=== PATIENT | female | born 1950 | race Hispanic/Latino ===

== ENCOUNTER → 2018-02-23 | Outpatient (CLI) | payer OTHER, MEDICARE | END | disposition home or self-care (01) | LOC: OIH 14:00 | PROVIDERS: ATTEND Family Medicine | DX: M25.562 Pain in left knee (principal); M79.662 Pain in left lower leg | CPT/HCPCS: 73562; 73590 ==

== ENCOUNTER 2019-12-24 15:53 | Emergency (ER) | payer OTHER, MEDICARE ==
[2019-12-24] MEDS ORDERED: KETOROLAC TROMETHAMINE 30MG/ML ONE (16:53)
== END 2019-12-24 17:44 | disposition home or self-care (01) ==
LOC: EDH 15:53
DX: B02.9 Zoster without complications (principal); E11.9 Type 2 diabetes mellitus without complications; J44.9 Chronic obstructive pulmonary disease, unspecified; I10 Essential (primary) hypertension; M81.0 Age-related osteoporosis without current pathological fracture
CPT/HCPCS: 96372; 99283; J1885

== ENCOUNTER → 2021-03-14 | Outpatient (CLI) | payer OTHER, MEDICARE | END | disposition home or self-care (01) | LOC: SHCH 10:41 | PROVIDERS: ATTEND Internal Medicine Cardiovascular Disease | DX: R01.1 Cardiac murmur, unspecified (principal) | CPT/HCPCS: 93306; 93356 ==

== ENCOUNTER → 2021-03-16 | Outpatient (CLI) | payer OTHER, MEDICARE ==
[~2021-03-16] MED LIST: REGADENOSON 0.4 MG/5 ML PF SYG IVP SCH
== END | disposition home or self-care (01) ==
LOC: SHCH 07:51
PROVIDERS: ATTEND Internal Medicine Cardiovascular Disease
DX: I48.19 Other persistent atrial fibrillation (principal)
CPT/HCPCS: 78452; 93017; 96374; A9500 ×2; J2785

== ENCOUNTER 2021-04-06 07:11 | Day surgery (SDC) | payer OTHER, MEDICARE ==
[2021-04-03 10:27] VITALS: BP 156/66
[2021-04-03 11:09] LABS: APPEARANCE,URINE Clear (CLEAR); BILIRUBIN,URINE Negative (NEGATIVE); COLOR,URINE Yellow (YELLOW); GLUCOSE, URINE (UA) Negative (NEGATIVE); KETONES,URINE Negative (NEGATIVE); LEUKOCYTE ESTERASE ,URINE Negative (NEGATIVE); NITRATE,URINE Negative (NEGATIVE); OCCULT BLOOD,URINE Negative (NEGATIVE); PROTEIN,URINE Negative (NEGATIVE)
[2021-04-03 11:16] LABS: CREATININE 0.7 mg/dL (0.5-1.5); EOSINOPHILS % (AUTO) 2.7 % (0.0-8.0); HEMATOCRIT 35.9 % (36-48); LYMPHOCYTES % (AUTO) 42.9 % (21.0-51.0); MEAN CORPUSCULAR HEMOGLOBIN 21.6 pg (27.0-33.0); MEAN CORPUSCULAR HGB CONC 31.8 g/dL (32.0-36.0); MONOCYTES % (AUTO) 11.7 % (3.0-13.0); NUCLEATED RED BLOOD CELLS 0.5 % (0.0-0.19); PLATELET COUNT (AUTO) 174 K/uL (130-400); POTASSIUM 4.1 mmol/L (3.5-5.1); RED BLOOD CELL COUNT(AUTO) 5.28 MIL/uL (4.00-5.50); RED CELL DISTRIBUTION WIDTH 15.5 % (11.0-15.5)
[2021-04-03 11:34] LABS: INR 1.24 (0.85-1.15); PROTHROMBIN TIME 13.3 SEC (9.6-11.6)
[~2021-04-06] VITALS: Ht 154.9 cm; Wt 76.4 kg
[2021-04-06] VITALS (11 sets, daily range): BP systolic 129–163; BP diastolic 49–75
[~2021-04-06 07:11] MED LIST changes: +ALBUHFA IH; +AMLO-257 PO; +APIX5TAB PO; +ATOR10 PO; +FLUT1AER IH; +FURO20TA4 PO; +GLIP5TAB11 PO; +LEVO50CA4 PO; +LOSA100T58 PO; +METF-444 PO; +METO25TA6 PO; +OMEP40CA21 PO; -REGADENOSON 0.4 MG/5 ML PF SYG IVP SCH
[2021-04-06] MEDS ORDERED: 0.9%NACL 1000ML 1,000 ML IV ONE (07:33)
[2021-04-06] MEDS ORDERED: MEPERIDINE-PF 50 MG/ML SYG ONE (07:53)
[2021-04-06] MEDS ORDERED: MIDAZOLAM HCL 1 MG/ML 2ML VIAL ONE ×2 (07:53→09:07)
[2021-04-06] MEDS ORDERED: IOHEXOL 350 MG/ML 100ML INFUS..BTL IV ONE (07:54)
[2021-04-06] MEDS ORDERED: NITROGLYCERIN 2 MG VIAL IV ONE (07:54)
[2021-04-06] MEDS ORDERED: HEPARIN 10,000 UNIT/10ML (1,000 UNIT/ML) VIAL ONE (07:54)
[2021-04-06] MEDS ORDERED: IOHEXOL-350 50ML VIAL IV ONE (07:54)
[2021-04-06] MEDS ORDERED: LIDOCAINE HCL 400MG/20ML VIAL ONE (07:55)
[2021-04-06] MEDS ORDERED: PROPOFOL 10 MG/ML 20ML VIAL IV ONE (09:06)
[2021-04-06] MEDS ORDERED: MEPERIDINE-PF 25 MG/ML SYG ONE (09:07)
[2021-04-06] MEDS ORDERED: AMIODARONE 150MG VIAL ONE ×3 (09:28→09:56)
[2021-04-06] MEDS ORDERED: SODIUM BICARB 50MEQ 50ML VIAL 50 ML ONE (09:41)
[2021-04-06] MEDS ORDERED: ASPIRIN 325MG EC TAB PO ONE (10:43)
[2021-04-06] MEDS ORDERED: CLOPIDOGREL 300MG TAB ONE (10:44)
[2021-04-06] MEDS ORDERED: 0.9%NACL 1000ML 1,000 ML IV SCH (11:00)
[2021-04-06] MEDS ORDERED: DEXTROSE 50%-WATER 50 ML DISP.SYRIN IV PRN (11:00)
[2021-04-06] MEDS ORDERED: AMIODARONE 200 MG TABLET PO ONE ×2 (11:00→11:22)
[2021-04-06] MEDS ORDERED: INSULIN HUMULIN R 100 UNIT/ML 3ML SQ SCH (11:30)
[2021-04-06] MEDS ORDERED: AMIODARONE 200 MG TABLET PO SCH (11:45)
[2021-04-06] MEDS ORDERED: PHARMACY COMMUNICATION MISC SCH (13:00)
== END 2021-04-06 17:05 | disposition home or self-care (01) ==
LOC: DAH 07:11
PROVIDERS: ATTEND Internal Medicine Cardiovascular Disease
DX: I25.119 Atherosclerotic heart disease of native coronary artery with unspecified angina pectoris (principal); Z20.822 Contact with and (suspected) exposure to COVID-19; I48.0 Paroxysmal atrial fibrillation; I11.0 Hypertensive heart disease with heart failure; I50.42 Chronic combined systolic (congestive) and diastolic (congestive) heart failure; E78.5 Hyperlipidemia, unspecified; E11.9 Type 2 diabetes mellitus without complications; E66.9 Obesity, unspecified; K21.9 Gastro-esophageal reflux disease without esophagitis; Z82.49 Family history of ischemic heart disease and other diseases of the circulatory system; Z79.84 Long term (current) use of oral hypoglycemic drugs; Z79.01 Long term (current) use of anticoagulants; Z79.899 Other long term (current) drug therapy; Z68.31 Body mass index [BMI] 31.0-31.9, adult
CPT/HCPCS: 36415; 71045; 80048; 81003; 82948 ×2; 85025; 85610; 85730; 87635; 92960; 93005 ×2; 93313; 93458; A4215; A4216; A4221; A4222; A4223 ×3; A4606; A4663; C1725; C1760; C1769 ×2; C1874; C1887; C1894; C9600; C9803; J0282 ×3; J1644 ×2; J2175 ×2; J2250 ×2; J2704; J3490 ×3; J7030; Q9965; Q9967 ×2; 99156; 99157

== ENCOUNTER → 2022-03-19 | Outpatient (CLI) | payer OTHER, MEDICARE ==
[~2022-03-19] MED LIST changes: -OMEP40CA21 PO
== END | disposition home or self-care (01) ==
LOC: LAB 09:57
PROVIDERS: ATTEND Internal Medicine Cardiovascular Disease
DX: I48.0 Paroxysmal atrial fibrillation (principal); I48.19 Other persistent atrial fibrillation
CPT/HCPCS: 36415; 83880

== ENCOUNTER → 2022-04-17 | Outpatient (CLI) | payer OTHER, MEDICARE | END | disposition home or self-care (01) | LOC: SHCH 10:19 | PROVIDERS: ATTEND Internal Medicine Cardiovascular Disease | DX: I70.293 Other atherosclerosis of native arteries of extremities, bilateral legs (principal); I48.0 Paroxysmal atrial fibrillation; R60.0 Localized edema | CPT/HCPCS: 93925; 93970 ==

== ENCOUNTER → 2022-05-29 | Outpatient (CLI) | payer OTHER, MEDICARE ==
[~2022-05-29] MED LIST changes: +IOHEXOL 350 MG/ML 100ML INFUS..BTL IV ONE; +IOHEXOL-350 50ML VIAL IV ONE
== END | disposition home or self-care (01) ==
LOC: RAH 10:32
PROVIDERS: ATTEND Internal Medicine Cardiovascular Disease
DX: I70.203 Unspecified atherosclerosis of native arteries of extremities, bilateral legs (principal); I25.10 Atherosclerotic heart disease of native coronary artery without angina pectoris; I48.0 Paroxysmal atrial fibrillation; Z95.5 Presence of coronary angioplasty implant and graft; I70.0 Atherosclerosis of aorta
CPT/HCPCS: 75635; Q9967 ×2

== ENCOUNTER → 2023-01-03 | Outpatient (CLI) | payer OTHER, MEDICARE ==
[~2023-01-03] MED LIST changes: -IOHEXOL 350 MG/ML 100ML INFUS..BTL IV ONE; -IOHEXOL-350 50ML VIAL IV ONE
== END | disposition home or self-care (01) ==
LOC: SHCH 09:30
PROVIDERS: ATTEND Internal Medicine Cardiovascular Disease
DX: I08.0 Rheumatic disorders of both mitral and aortic valves (principal); I48.20 Chronic atrial fibrillation, unspecified; R00.2 Palpitations
CPT/HCPCS: 93306

== ENCOUNTER → 2023-01-14 | Outpatient (CLI) | payer OTHER, MEDICARE ==
[~2023-01-14] MED LIST changes: +REGADENOSON 0.4 MG/5 ML PF SYG IVP ONE
== END | disposition home or self-care (01) ==
LOC: SHCH 08:49
PROVIDERS: ATTEND Internal Medicine Cardiovascular Disease
DX: R00.2 Palpitations (principal); R06.00 Dyspnea, unspecified; Z79.899 Other long term (current) drug therapy
CPT/HCPCS: 78452; 96374; 93017; J2785; A9500 ×2

== ENCOUNTER → 2023-01-28 | Outpatient (CLI) | payer OTHER, MEDICARE ==
[~2023-01-28] MED LIST changes: -REGADENOSON 0.4 MG/5 ML PF SYG IVP ONE
[2023-01-28 12:52] LABS: CREATININE 0.8 mg/dL (0.5-1.5); MAGNESIUM 1.5 mg/dL (1.80-2.40); POTASSIUM 3.8 mmol/L (3.5-5.1)
== END | disposition home or self-care (01) ==
LOC: LAB 09:24
PROVIDERS: ATTEND Internal Medicine Cardiovascular Disease
DX: I25.10 Atherosclerotic heart disease of native coronary artery without angina pectoris (principal)
CPT/HCPCS: 36415; 80048; 83735; 83880

== ENCOUNTER → 2023-03-19 | Outpatient (CLI) | payer OTHER, MEDICARE ==
[~2023-03-19] MED LIST changes: -LOSA100T58 PO; +LOSA100T59 PO
[2023-03-19 12:17] LABS: ALBUMIN 3.5 g/dL (3.5-5.0); CREATININE 0.7 mg/dL (0.5-1.5); MAGNESIUM 1.2 mg/dL (1.80-2.40); POTASSIUM 4.4 mmol/L (3.5-5.1); TOTAL PROTEIN, SERUM 7.5 g/dL (6.0-8.3)
== END | disposition home or self-care (01) ==
LOC: LAB 09:15
PROVIDERS: ATTEND Physician Assistant
DX: I10 Essential (primary) hypertension (principal); E78.5 Hyperlipidemia, unspecified
CPT/HCPCS: 36415; 80053; 83735; 83880

== ENCOUNTER → 2023-10-28 | Outpatient (CLI) | payer OTHER, MEDICARE ==
[~2023-10-28] MED LIST changes: -GLIP5TAB11 PO; +GLIP5TAB15 PO
[2023-10-28 12:18] LABS: BASOPHILS # (AUTO) 0.03 K/uL (0.00-0.20); BASOPHILS % (AUTO) 0.5 % (0.0-5.0); EOSINOPHILS % (AUTO) 1.7 % (0.0-8.0); HEMATOCRIT 29.7 % (36-48); IMMATURE GRANULOCYTE ABSOLUTE 0.03 K/uL (0-1); LYMPHOCYTES # (AUTO) 1.3 K/uL (1.0-4.8); LYMPHOCYTES % (AUTO) 22.1 % (21.0-51.0); MEAN CORPUSCULAR HEMOGLOBIN 20.8 pg (27.0-33.0); MEAN CORPUSCULAR HGB CONC 31.6 g/dL (32.0-36.0); MEAN CORPUSCULAR VOLUME 65.7 fL (79-99); MONOCYTES # (AUTO) 0.7 K/uL (0.1-1.0); MONOCYTES % (AUTO) 12.2 % (3.0-13.0); NEUTROPHILS # (AUTO) 3.7 K/uL (1.8-7.7); PLATELET COUNT (AUTO) 172 K/uL (130-400); RED BLOOD CELL COUNT(AUTO) 4.52 MIL/uL (4.00-5.50); WHITE BLOOD COUNT (AUTO) 5.8 K/uL (4.8-10.8)
[2023-10-28 12:53] LABS: ALBUMIN 3.6 g/dL (3.5-5.0); BILIRUBIN,TOTAL 0.6 mg/dL (0.2-1.0); POTASSIUM 4.5 mmol/L (3.5-5.1); TOTAL PROTEIN, SERUM 7.3 g/dL (6.0-8.3)
== END | disposition home or self-care (01) ==
LOC: LAB 09:16
PROVIDERS: ATTEND Internal Medicine Cardiovascular Disease
DX: I48.0 Paroxysmal atrial fibrillation (principal); E78.5 Hyperlipidemia, unspecified
CPT/HCPCS: 36415; 80053; 80061; 83735; 83880; 85025

== ENCOUNTER → 2023-12-02 | Outpatient (CLI) | payer OTHER, MEDICARE | END | disposition home or self-care (01) | LOC: SHCH 10:30 | PROVIDERS: ATTEND Internal Medicine Cardiovascular Disease | DX: I08.0 Rheumatic disorders of both mitral and aortic valves (principal); I11.9 Hypertensive heart disease without heart failure; I25.119 Atherosclerotic heart disease of native coronary artery with unspecified angina pectoris; I73.9 Peripheral vascular disease, unspecified; D64.9 Anemia, unspecified; E78.5 Hyperlipidemia, unspecified; E11.9 Type 2 diabetes mellitus without complications | CPT/HCPCS: 93306; 93925 ==

== ENCOUNTER → 2023-12-05 | Outpatient (CLI) | payer OTHER, MEDICARE ==
[2023-12-05] MEDS: REGADENOSON 0.4 MG/5 ML PF SYG IVP ONE (14:28)
== END | disposition home or self-care (01) ==
LOC: SHCH 07:38
PROVIDERS: ATTEND Internal Medicine Cardiovascular Disease
DX: I48.91 Unspecified atrial fibrillation (principal); I25.10 Atherosclerotic heart disease of native coronary artery without angina pectoris
CPT/HCPCS: 78452; 96374; 93017; J2785; A9500 ×2

== ENCOUNTER 2024-01-14 09:33 | Day surgery (SDC) | payer OTHER, MEDICARE ==
[2024-01-12 09:19] LABS: BASOPHILS # (AUTO) 0.03 K/uL (0.00-0.20); BASOPHILS % (AUTO) 0.6 % (0.0-5.0); EOSINOPHILS % (AUTO) 2.1 % (0.0-8.0); HEMATOCRIT 29.8 % (36-48); IMMATURE GRANULOCYTE ABSOLUTE 0.02 K/uL (0-1); LYMPHOCYTES # (AUTO) 1.2 K/uL (1.0-4.8); LYMPHOCYTES % (AUTO) 25.5 % (21.0-51.0); MEAN CORPUSCULAR HEMOGLOBIN 19.5 pg (27.0-33.0); MEAN CORPUSCULAR HGB CONC 31.5 g/dL (32.0-36.0); MEAN CORPUSCULAR VOLUME 61.8 fL (79-99); MONOCYTES # (AUTO) 0.8 K/uL (0.1-1.0); MONOCYTES % (AUTO) 15.6 % (3.0-13.0); NEUTROPHILS # (AUTO) 2.7 K/uL (1.8-7.7); NEUTROPHILS % (AUTO) 55.8 % (40.0-77.0); PLATELET COUNT (AUTO) 178 K/uL (130-400); RED BLOOD CELL COUNT(AUTO) 4.82 MIL/uL (4.00-5.50); RED CELL DISTRIBUTION WIDTH 14.8 % (11.0-15.5); WHITE BLOOD COUNT (AUTO) 4.8 K/uL (4.8-10.8)
[2024-01-12 09:33] LABS: CREATININE 0.8 mg/dL (0.5-1.0); POTASSIUM 4.6 mmol/L (3.5-5.1)
[2024-01-12 09:34] LABS: INR 1.02 (0.85-1.15)
[2024-01-12 09:35] LABS: PARTIAL THROMBOPLASTIN TIME 26.8 SEC (26.3-35.5)
[2024-01-12 09:37] LABS: APPEARANCE,URINE CLOUDY (CLEAR); BILIRUBIN,URINE NEGATIVE (NEGATIVE); COLOR,URINE LIGHT-YELLOW (YELLOW); GLUCOSE, URINE (UA) NEGATIVE (NEGATIVE); KETONES,URINE NEGATIVE (NEGATIVE); LEUKOCYTE ESTERASE ,URINE 500 Leu/uL (NEGATIVE); NITRATE,URINE NEGATIVE (NEGATIVE); OCCULT BLOOD,URINE NEGATIVE (NEGATIVE); PROTEIN,URINE NEGATIVE (NEGATIVE); UROBILINOGEN,URINE 0.2 mg/dL (0.2-1.0)
[2024-01-12 09:40] LABS: ADD UA MICROSCOPIC YES
[2024-01-12 09:43] LABS: BACTERIA,URINE MANY /HPF (None Seen); MUCUS,URINE RARE LPF (None Seen); OTHER CASTS, URINE 3 /LPF (None Seen); SQUAMOUS EPITHELIAL CELL,UR MOD /HPF (0-2); WBC,URINE 26-50 /HPF (0-1)
[2024-01-12 09:55] LABS: B-TYPE NATRIURETIC PEPTIDE 404 pg/mL (0-100)
[2024-01-12 10:06] VITALS: BP 196/87; PULSE 97; RESP 16
[2024-01-12 11:35] LABS: WBC MORPHOLOGY CONSISTENT W/DIFF
[2024-01-14] VITALS (12 sets, daily range): BP systolic 121–178; BP diastolic 53–83; PULSE 63–80; RESP 14–16
[~2024-01-14] VITALS: Ht 152.4 cm; Wt 74.1 kg
[~2024-01-14 09:33] MED LIST changes: +CLOP75TA32 PO; -FLUT1AER IH; +FLUT1BLS3 IH; +PANT40TA54 PO; +SPIR25TA6 PO
[2024-01-14] MEDS ORDERED: CIPR-278 PO (11:58)
[2024-01-14] MEDS ORDERED: 0.9%NACL 1000ML 1,000 ML IV ONE (12:06)
[2024-01-14] MEDS ORDERED: LIDOCAINE HCL 400MG/20ML VIAL ONE (12:25)
[2024-01-14] MEDS ORDERED: NICARDIPINE 25MG INJ IV ONE (12:26)
[2024-01-14] MEDS ORDERED: MIDAZOLAM HCL 1 MG/ML 2ML VIAL ONE ×3 (12:26→14:00)
[2024-01-14] MEDS ORDERED: IOHEXOL 350 MG/ML 100ML INFUS..BTL IV ONE ×2 (12:26→12:29)
[2024-01-14] MEDS ORDERED: MEPERIDINE-PF 25 MG/ML SYG ONE ×3 (12:26→14:00)
[2024-01-14] MEDS ORDERED: NITROGLYCERIN 50MG VIAL ONE (12:27)
[2024-01-14] MEDS ORDERED: HEPARIN 10,000 UNIT/10ML (1,000 UNIT/ML) VIAL ONE (12:27)
[2024-01-14] MEDS ORDERED: HYDRALAZINE 20MG/ML VIAL ONE (13:39)
[2024-01-14] MEDS ORDERED: ASPIRIN 325MG EC TAB PO ONE (14:11)
[2024-01-14] MEDS ORDERED: 0.9%NACL 1000ML 1,000 ML IV SCH (14:30)
[2024-01-14] MEDS ORDERED: DEXTROSE 50%-WATER 50 ML DISP.SYRIN IV PRN (14:30)
[2024-01-14] MEDS ORDERED: INSULIN HUMULIN R 100 UNIT/ML 3ML SQ SCH (16:30)
== END 2024-01-14 19:20 | disposition home or self-care (01) ==
LOC: DAH 09:33
PROVIDERS: ATTEND Internal Medicine Cardiovascular Disease
DX: I25.119 Atherosclerotic heart disease of native coronary artery with unspecified angina pectoris (principal); I48.19 Other persistent atrial fibrillation; I11.0 Hypertensive heart disease with heart failure; I50.32 Chronic diastolic (congestive) heart failure; K21.9 Gastro-esophageal reflux disease without esophagitis; E66.9 Obesity, unspecified; E78.5 Hyperlipidemia, unspecified; E11.9 Type 2 diabetes mellitus without complications; Z79.01 Long term (current) use of anticoagulants; Z79.899 Other long term (current) drug therapy; Z79.84 Long term (current) use of oral hypoglycemic drugs; Z68.37 Body mass index [BMI] 37.0-37.9, adult; Z95.5 Presence of coronary angioplasty implant and graft
CPT/HCPCS: 80048; 83880; 85025; 85610; 85730; 87088; 81001; 36415; 71045; 93005; 93458; 87077; 87186; 82948 ×2; C9600; C1769; C1894 ×3; C1725; C1874 ×2; C1760; C1887 ×2; J3490 ×3; J7030; J0360; J1644 ×2; J2250 ×3; J2175 ×3; Q9967; A4215; A4222; A4221; A4663; A4216; A4606; C9601; Q9965; A4223 ×3; 99156; 99157

== ENCOUNTER → 2025-01-20 | Outpatient (CLI) | payer OTHER, MEDICARE ==
[~2025-01-20] MED LIST changes: +CIPR-278 PO; -LEVO50CA4 PO; +LEVO50CA5 PO
== END | disposition home or self-care (01) ==
LOC: SHCH 09:41
PROVIDERS: ATTEND Internal Medicine Cardiovascular Disease
DX: I08.3 Combined rheumatic disorders of mitral, aortic and tricuspid valves (principal); R06.02 Shortness of breath
CPT/HCPCS: 93306

== ENCOUNTER → 2025-01-27 | Outpatient (CLI) | payer OTHER, MEDICARE ==
[2025-01-27] MEDS: REGADENOSON 0.4 MG/5 ML PF SYG IVP ONE (16:06)
== END | disposition home or self-care (01) ==
LOC: SHCH 07:47
PROVIDERS: ATTEND Internal Medicine Cardiovascular Disease
DX: I25.10 Atherosclerotic heart disease of native coronary artery without angina pectoris (principal)
CPT/HCPCS: 78452; 93017; J2785; A9500 ×2

== ENCOUNTER → 2025-08-23 | Outpatient (CLI) | payer OTHER, MEDICAID ==
[~2025-08-23] MED LIST changes: -AMLO-257 PO; -CIPR-278 PO; +DAPA5TAB PO; +FERR-82 PO; +GADOTERATE MEGLUMINE 10 MMOL/20 ML VIAL IV ONE; +MEMA5TAB16 PO
--- NOTE | 2025-08-25 10:41 | HMCIMG ---
EXAM: MR Abdomen with and without Intravenous Contrast. HISTORY: Patient presents for evaluation of abnormal findings on prior digestive system imaging. TECHNIQUE: Multisequence, multiplanar magnetic resonance images of the abdomen with and without intravenous contrast. COMPARISON: None provided. FINDINGS: Study limited by patient motion. LOWER THORAX No pleural effusion. LIVER Mild hepatomegaly with rounded cirrhotic contour; right hepatic lobe measures up to 18.0 cm craniocaudally. Hepatic steatosis. Multiple variable-sized arterially enhancing lesions with washout in the right lobe, largest measuring up to 4.3 ??? 5.7 ??? 3.1 cm in segment . GALLBLADDER AND BILE DUCTS No gallstone. No biliary ductal dilation. PANCREAS Unremarkable. No ductal dilation. SPLEEN Unremarkable. ADRENALS Unremarkable. KIDNEYS No hydronephrosis. No renal mass. STOMACH AND BOWEL Limited assessment shows no acute process. Uncomplicated colonic diverticula. LYMPH NODES No lymphadenopathy. VASCULATURE No abdominal aortic aneurysm. IMPRESSION: Study limited by patient motion. Mild hepatomegaly with rounded cirrhotic contour and hepatic steatosis. Multiple arterially enhancing lesions with washout in the right hepatic lobe, concerning for hepatocellular carcinoma in the setting of cirrhotic morphology. Recommended histopathologic correlation. /[place]
== END ==
LOC: RAH 08:34
PROVIDERS: ATTEND Internal Medicine Gastroenterology
DX: K76.0 Fatty (change of) liver, not elsewhere classified (principal); R93.3 Abnormal findings on diagnostic imaging of other parts of digestive tract; R77.2 Abnormality of alphafetoprotein; K74.60 Unspecified cirrhosis of liver; R16.0 Hepatomegaly, not elsewhere classified; K57.30 Diverticulosis of large intestine without perforation or abscess without bleeding
CPT/HCPCS: 74183; A9575

== ENCOUNTER 2025-09-12 09:13 | Emergency (ER) | payer OTHER, MEDICAID ==
[~2025-09-12] VITALS: Ht 149.9 cm; Wt 70.8 kg
--- NOTE | 2025-09-12 09:20 | NUR ---
PT JUST ARRIVED AND PLACED IN ED BED 10
--- NOTE | 2025-09-12 09:29 | NUR ---
ICE PACK APPLIED TO L KNEE UPON PT ARRIVAL.
[2025-09-12 10:01] LABS: NUCLEATED RED BLOOD CELLS 0.3 % (0.0-0.19); PLATELET COUNT (AUTO) 141 K/uL (130-400); RED BLOOD CELL COUNT(AUTO) 4.56 MIL/uL (4.00-5.50); RED CELL DISTRIBUTION WIDTH 15.4 % (11.0-15.5); WHITE BLOOD COUNT (AUTO) 6.9 K/uL (4.8-10.8)
--- NOTE | 2025-09-12 10:01 | HMCIMG ---
EXAM: CR right Hip, 3 View. CLINICAL HISTORY: fall COMPARISON: None provided. FINDINGS: BONES: No acute fracture or aggressive appearing osseous lesion. JOINTS: No dislocation. The joint spaces are normal. SOFT TISSUES: Vascular calcifications are noted. OTHER: If patient is unable to bear weight; consider CT examination for further evaluation. IMPRESSION: 1. No acute osseous injury. 2. Vascular calcifications noted. /[place]
--- NOTE | 2025-09-12 10:02 | HMCIMG ---
EXAM: CR right Tibia and fibula, 3 View. CLINICAL HISTORY: fall COMPARISON: None provided. FINDINGS: BONES: No acute fracture or aggressive appearing osseous lesion. JOINTS: No dislocation. The joint spaces are normal. SOFT TISSUES: Vascular calcifications noted. IMPRESSION: 1. No acute osseous injury. 2. Vascular calcifications. /[place]
--- NOTE | 2025-09-12 10:02 | HMCIMG ---
EXAM: CR right Knee, 3 View. CLINICAL HISTORY: fall COMPARISON: None provided. FINDINGS: BONES: No acute fracture or aggressive appearing osseous lesion. JOINTS: The joint spaces show no significant degenerative disease. There is no joint effusion appreciated. SOFT TISSUES: Vascular calcifications noted. IMPRESSION: 1. No acute osseous injury. 2. No significant degenerative changes. 3. Vascular calcifications. /[place]
[2025-09-12 10:15] LABS: CREATININE 1.0 mg/dL (0.5-1.0); GLOMERULAR FILTR. RATE CALC 58.0 mL/min (>90); GLUCOSE,RANDOM 90.0 mg/dL (70-105); SODIUM SERUM 132.0 mmol/L (136-145); UREA NITROGEN, BLOOD 19.0 mg/dL (7-18)
[2025-09-12 10:17] LABS: CREATINE KINASE, TOTAL 47.0 U/L (21-232)
--- NOTE | 2025-09-12 10:18 | NUR ---
UPON MED REASSESSMENT, PT NOW STATES IF WE COULD CHECK HER R KNEE WELL WITH AN XRAY. SHE STATES THAT HURT INITIALLY BUT NOT BAD THE L KNEE. ED MD WAS INFORMED AND ORDERS PLACED
--- NOTE | 2025-09-12 10:43 | HMCIMG ---
EXAM: CR right Knee, 3 Views. CLINICAL HISTORY: Fall with injury COMPARISON: None provided. FINDINGS: BONES: No acute fracture or aggressive appearing osseous lesion. JOINTS: Degenerative osteoarthritic changes with marginal osteophytes and reduced medial tibiofemoral joint space. There is no joint effusion appreciated. SOFT TISSUES: Vascular calcifications noted. IMPRESSION: No acute osseous injury. Moderate degenerative osteoarthritic changes. Vascular calcifications. /[place]
--- NOTE | 2025-09-12 10:53 | ERN ---
General Chief Complaint: Mechanical Fall Stated Complaint: LEFT KNEE PAIN S/P NON TRAUMATIC FALL Time Seen by MD: 09:15 Source: patient History of Present Illness Initial Comments In his is a 75-year-old female coming in complaining of left lower extremity pain. Per patient she does has a history of chronic osteoarthritis of the bilateral hips. She had an MRI performed due to the chronic pain he is pending results. She states that earlier today she almost fell down strained her left lower extremity and was not unable to get up due to the discomfort. Allergies: Coded Allergies: No Known Drug Allergies (Unverified Allergy, Unknown, 03/15/21) Home Meds Reported Medications Ferrous Sulfate (Iron) 325 Mg (65 Mg Iron) Tablet, 325 MG PO AM, TAB 08/01/25 Memantine HCl (Memantine HCl) 5 Mg Tablet, 5 MG PO AM, TAB 08/01/25 Pantoprazole Sodium (Pantoprazole Sodium) 40 Mg Tablet.dr, 40 MG PO AM, TAB 08/01/25 Dapagliflozin Propanediol (Farxiga) 5 Mg Tablet, 5 MG PO AM, TAB 08/01/25 Pantoprazole Sodium (Pantoprazole Sodium) 40 Mg Tablet.dr, 40 MG PO AM, TAB 01/12/24 Clopidogrel Bisulfate (Clopidogrel) 75 Mg Tablet, 75 MG PO AM, TAB 01/12/24 Fluticasone/Umeclidin/Vilanter (Trelegy Ellipta 100-62.5-25) 100-62.5 Blst.w. dev, 1 EACH IH AM 01/12/24 Spironolactone (Spironolactone) 25 Mg Tablet, 25 MG PO AM, TAB 01/12/24 Apixaban (Eliquis) 5 Mg Tablet, 5 MG PO BID, TAB 04/04/21 Metformin HCl (Metformin HCl) 500 Mg Tablet, 500 MG PO AM, TAB 04/04/21 Metoprolol Tartrate (Metoprolol Tartrate) 25 Mg Tablet, 100 MG PO AM, TAB 04/04/21 Levothyroxine Sodium (Levothyroxine) 50 Mcg Capsule, 50 MCG PO DAILY, CAP 04/04/21 Furosemide (Furosemide) 20 Mg Tablet, 40 MG PO BID, TAB 04/04/21 Losartan Potassium (Losartan Potassium) 100 Mg Tablet, 100 MG PO DAILY, TAB 04/04/21 Glipizide (Glipizide) 5 Mg Tablet, 5 MG PO DAILY, TAB 04/04/21 Atorvastatin Calcium (LIPITOR) 10 Mg Tab, 20 MG PO DAILY, TAB 04/04/21 Albuterol Sulfate (Ventolin Hfa/Proventil Hfa/Proair Hfa) 90 Mcg Puff, 2 PUFF IH AD PRN for SHORTNESS OF BREATH, INHALER 04/04/21 Past Medical History Past Medical History: CAD, COPD, Diabetes-Type II, High Cholesterol, Hypertension Past Surgical History: Other Surgical History Other: CARDIAC STENTS ON ELIQUIS ROS Dictation CONSTITUTIONAL: No chills, no fever, no weakness, no diaphoresis, no malaise. HEAD/FACE: No signs of trauma. EENT: No eye pain, no blurred vision, no tearing, no double vision, no ear pain, no ear discharge, no nose pain, no nasal congestion, no throat pain, no throat swelling, no mouth pain. RESPIRATORY: No cough, no orthopnea, no SOB, no stridor, no wheezing. CARDIOVASCULAR: No chest pain, no edema, no palpitations, no syncope. GASTROINTESTINAL/ABDOMINAL: No abdominal pain, no constipation, no diarrhea, no nausea, no vomiting. GENITOURINARY: No abnormal discharge, no dysuria, no frequent urination, no hematuria. No complaints of pain in the genitals. MUSCULOSKELETAL: No back pain, no gout, joint pain, no joint swelling, muscle pain, muscle stiffness, no neck pain. INTEGUMENTARY: No change in color, no change in hair/nails, no dryness, no lesion, no lumps, no rash. NEUROLOGICAL/PSYCH: No anxiety, not depressed, no emotional problem, no headache, no numbness, no pre-existing deficit, no history of seizures, no tremors, no weakness. HEMATOLOGIC/LYMPHATIC: Not anemic, no history of blood clots, no apparent bleeding, no bruising, glands not swollen. All Systems Negative, Except as Noted. Physical Exam Physical Exam Dictation VITAL SIGNS: Reviewed. GENERAL APPEARANCE: Alert, oriented x3, no acute distress, obese. HEAD AND FACE: Non-traumatic. EYES: PERRL, pink conjunctivas, eyelid no trauma, anterior chamber clear. EARS: Pinnas intact and no signs of trauma or erythema. Ear canals clear and no discharge. TMs no erythema. NOSE: No discharge, no bleeding. OROPHARYNX: Mouth normal, teeth no caries, tongue pink. Pharynx clear, no erythema. Tonsils no exudates, no abscesses noted. Mucous membrane moist. NECK: Supple, non-tender, no thyromegaly, no masses, no JVD, no bruits. BREAST: Deferred. CHEST: No tenderness, no crepitus, no paradoxical movement, no retractions. LUNGS: Clear, well-ventilated, symmetric, no rales, no wheezing, no rhonchi, no stridor, good breath sounds bilaterally. HEART: Regular rate, regular rhythm, no murmur, no gallops. VASCULAR: No peripheral edema. ABDOMEN: Soft, positive bowel sounds, nondistended, no guarding, nontender, no rebound, no masses no hepatomegaly, no splenomegaly, no Arevalo's sign, no hernias. RECTAL: Deferred. GENITAL: Deferred. NEUROLOGICAL: Normal speech, gross motor function intact, gross sensory function intact. MUSCULOSKELETAL: Neck nontender, full range of motion, back nontender, full range of motion. EXTREMITIES: Nontender, full range of motion. Left hip pain on palpation, left knee pain, left lower extremity discomfort. SKIN: Color pink, dry, no turgor, no rash, no lacerations, no abrasions, no contusions. LYMPHATICS: Deferred. Results Laboratory and Microbiology Lab and Micro Result Laboratory Tests Test 09/12/25 09:52 White Blood Count 6.9 K/uL (4.8-10.8) Red Blood Count 4.56 MIL/uL (4.00-5.50) Hemoglobin 9.9 g/dL (12.0-16.0) L Hematocrit 30.3 % (36-48) L Mean Corpuscular Volume 66.4 fL (79-99) L Mean Corpuscular Hemoglobin 21.7 pg (27.0-33.0) L Mean Corpuscular Hemoglobin Concent 32.7 g/dL (32.0-36.0) Red Cell Distribution Width 15.4 % (11.0-15.5) Platelet Count 141 K/uL (130-400) Mean Platelet Volume fL (7.5-10.5) Nucleated Red Blood Cells 0.3 % (0.0-0.19) H Red Blood Cell Morphology See comments Sodium Level 132 mmol/L (136-145) L Potassium Level 3.9 mmol/L (3.5-5.1) Chloride Level 96 mmol/L (101-111) L Carbon Dioxide Level 23 mmol/L (21-32) Blood Urea Nitrogen 19 mg/dL (7-18) H Creatinine 1.0 mg/dL (0.5-1.0) Glomerular Filtration Rate Calc 58 mL/min (>90) Random Glucose 90 mg/dL (70-105) Total Calcium 8.5 mg/dL (8.5-10.1) Total Creatine Kinase 47 U/L (21-232) Labs Reviewed?: Yes EKG/XRAY/US/CT/MRI X-RAY Comment IMAGING REPORT Signed PATIENT: CASIMIRO BRUNO MR#: [id number] : 1950 SEX: F AGE: 75 LOCATION: [facility] ORDER 1016 STATUS: [facility] REPORT#: [id number] SERVICE 101 REASON: FALL W/INJURY ORDERING PHYSICIAN: YORDY TIRADO MD PROCEDURE: KNEE 3V RT - KNEE 3VWS RT EXAM: CR right Knee, 3 Views. CLINICAL HISTORY: Fall with injury COMPARISON: None provided. FINDINGS: BONES: No acute fracture or aggressive appearing osseous lesion. JOINTS: Degenerative osteoarthritic changes with marginal osteophytes and reduced medial tibiofemoral joint space. There is no joint effusion appreciated. SOFT TISSUES: Vascular calcifications noted. IMPRESSION: No acute osseous injury. Moderate degenerative osteoarthritic changes. Vascular calcifications. /[place] DICTATED BY: CRISTINA MCPHERSON Jr., MD DATE: 09/12/251141 ELECTRONICALLY SIGNED BY: CRISTINA MCPHERSON Jr., MD DATE: 09/12/25 1142 IMAGING REPORT Signed PATIENT: CASIMIRO BRUNO MR#: [id number] : 1950 SEX: F AGE: 75 LOCATION: [facility] ORDER 1 STATUS: [facility] REPORT#: [id number] SERVICE 0 REASON: fall ORDERING PHYSICIAN: YORDY TIRADO MD PROCEDURE: TIBFIB LT - TIBIA/FIBULA 2VWS LT EXAM: CR right Tibia and fibula, 3 View. CLINICAL HISTORY: fall COMPARISON: None provided. FINDINGS: BONES: No acute fracture or aggressive appearing osseous lesion. JOINTS: No dislocation. The joint spaces are normal. SOFT TISSUES: Vascular calcifications noted. IMPRESSION: 1. No acute osseous injury. 2. Vascular calcifications. /[place] DICTATED BY: ISRA RADFORD MD DATE: 09/12/251100 ELECTRONICALLY SIGNED BY: ISRA RADFORD MD DATE: 09/12/251100 [place] [id number] IMAGING REPORT Signed PATIENT: CASIMIRO BRUNO MR#: [id number] : 1950 SEX: F AGE: 75 LOCATION: ED ORDER 1 STATUS: [facility] REPORT#: [id number] SERVICE 0 REASON: fall ORDERING PHYSICIAN: YORDY TIRADO MD PROCEDURE: KNEE 3V LT - KNEE 3VWS LT EXAM: CR right Knee, 3 View. CLINICAL HISTORY: fall COMPARISON: None provided. FINDINGS: BONES: No acute fracture or aggressive appearing osseous lesion. JOINTS: The joint spaces show no significant degenerative disease. There is no joint effusion appreciated. SOFT TISSUES: Vascular calcifications noted. IMPRESSION: 1. No acute osseous injury. 2. No significant degenerative changes. 3. Vascular calcifications. /[place] DICTATED BY: ISRA RADFORD MD DATE: 09/12/251101 ELECTRONICALLY SIGNED BY: ISRA RADFORD MD DATE: 09/12/251101 [address] [place] [id number] IMAGING REPORT Signed PATIENT: CASIMIRO BRUNO MR#: [id number] : 1950 SEX: F AGE: 75 LOCATION: [facility] ORDER 1 STATUS: REG ER REPORT#: [id number] SERVICE 0 REASON: fall ORDERING PHYSICIAN: YORDY TIRADO MD PROCEDURE: HIP U 2V L - HIP UNILAT 2-3VW LEFT EXAM: CR right Hip, 3 View. CLINICAL HISTORY: fall COMPARISON: None provided. FINDINGS: BONES: No acute fracture or aggressive appearing osseous lesion. JOINTS: No dislocation. The joint spaces are normal. SOFT TISSUES: Vascular calcifications are noted. OTHER: If patient is unable to bear weight; consider CT examination for further evaluation. IMPRESSION: 1. No acute osseous injury. 2. Vascular calcifications noted. /[place] DICTATED BY: ISRA RADFORD MD DATE: 09/12/251100 ELECTRONICALLY SIGNED BY: ISRA RADFORD MD DATE: 09/12/251100 [facility] MDM: Differential diagnosis: Fall, strain, history of chronic hip pain Rationale: Tests considered and ordered secondary to shared decision making include: Previous outside records reviewed: Old ER visits. Risk of complication and/or morbidity or mortality of patient management: None Medications-Per medication reconciliation Need for hospitalization: Patient does not meet criteria for hospitalization. Need for emergency major/minor surgery: No Patient is a 75-year-old female coming in after she almost fell earlier today she states that she almost fell she lowered herself to the bottom but was complaining of left hip pain. She states he has chronic hip pain x-rays did not disclose any acute findings. Did advised her appropriate follow up with the PCP. ED Course Orders Procedure Category Date Status Time Hip Unilat 2-3vw Left RAD 09/12/25 Resulted 09:21 Knee 3vws Lt RAD 09/12/25 Resulted 09:21 Tibia/Fibula 2vws Lt RAD 09/12/25 Resulted 09:21 Cbc Without LAB 12/8/25 Complete Differential 09:39 Basic Metabolic Panel LAB 09/12/25 Complete 09:39 Creatine Kinase, Total LAB 09/12/25 Complete 09:39 Ondansetron 4mg Inj PHA 09/12/25 Complete (Zofran 4mg Inj) 10:00 Morphine 2mg Syg PHA 09/12/25 Complete (Morphine 2mg Syg) 10:00 Knee 3vws Rt RAD 09/12/25 Resulted 10:17 Current Medications Medications (Trade) Dose Ordered Sig/Marisa Route PRN Reason Start Time Stop Time Status Last Admin Dose Admin Morphine Sulfate (morPHINE 2MG SYG) 2 mg ONCE ONCE IVP 09/12/25 10:00 09/12/25 10:01 DC 09/12/25 09:45 Ondansetron HCl (zoFRAN 4MG INJ) 4 mg ONCE ONCE IVP 09/12/25 10:00 09/12/25 10:01 DC 09/12/25 09:45 Vital Signs Date Time Temp Pulse Resp B/P (MAP) Pulse Ox O2 Delivery O2 Flow Rate FiO2 09/12/25 11:18 98.1 90 14 168/78 95 Room Air* 0 21 09/12/25 09:22 98.1 95 14 202/75 100 Room Air 0 DX & DISP Disposition: Discharge Departure Impression: Primary Impression: Fall Additional Impression: Chronic hip pain, bilateral Condition: Stable Additional Instructions: FOLLOW-UP WITH PRIMARY CARE PROVIDER IN 1 TO 2 DAYS. TAKE MEDICATIONS DIRECTED HERE IN THE EMERGENCY ROOM. OKAY TO CONTINUE HOME MEDICATIONS UNLESS OTHERWISE DISCUSSED DURING YOUR VISIT IN THE EMERGENCY ROOM TODAY. RETURN TO YOUR NEAREST EMERGENCY ROOM IF SYMPTOMS WORSEN OR IF THERE IS NO IMPROVEMENT. CALL 911 IF YOU NEED IMMEDIATE ASSISTANCE. TAKE TYLENOL [id number] NEEDED AND IF NO CONTRAINDICATIONS ARE PRESENT. INCREASE ORAL HYDRATION. A WOUND CULTURE OR URINE CULTURE WAS ORDERED HERE IN THE EMERGENCY ROOM DEPARTMENT PLEASE FOLLOW-UP WITH PRIMARY CARE PROVIDER AND ADVISE THEM TO GET REPORTS FROM OUR FACILITY. IF YOU HAD ANY AYAN WRAP/SPLINTS THAT WERE APPLIED HERE, PLEASE DO NOT REMOVE THEM UNTIL YOU SEE YOUR PRIMARY CARE OR SPECIALTY. Referrals: Referrals: MICHAEL JONES MD (PCP) Time of Disposition: 11:32 YORDY TIRADO MD Sep 12, 2025 10:53
[2025-09-12 11:18] VITALS: BP 168/78; PULSE 90; RESP 14; TEMP 98.1; O2SAT 95
== END 2025-09-12 11:19 | disposition home or self-care (01) ==
LOC: EDH 09:13
DX: G89.29 Other chronic pain (principal); M25.552 Pain in left hip; M25.551 Pain in right hip; M25.562 Pain in left knee; M16.0 Bilateral primary osteoarthritis of hip; E11.9 Type 2 diabetes mellitus without complications; E78.00 Pure hypercholesterolemia, unspecified; I10 Essential (primary) hypertension; I25.10 Atherosclerotic heart disease of native coronary artery without angina pectoris; J44.9 Chronic obstructive pulmonary disease, unspecified; Z79.899 Other long term (current) drug therapy; Z79.84 Long term (current) use of oral hypoglycemic drugs; Z79.01 Long term (current) use of anticoagulants; Z79.890 Hormone replacement therapy; Z95.5 Presence of coronary angioplasty implant and graft; W18.39XA Other fall on same level, initial encounter; Y93.89 Activity, other specified; Y92.89 Other specified places as the place of occurrence of the external cause; Y99.8 Other external cause status
CPT/HCPCS: 99284; 96374; 96375; 82550; 80048; 85027; 36415; 73502; 73562; 73590; J2270; J2405